=== PATIENT | female | born 1965 | race Two or more races ===

== ENCOUNTER 2019-11-18 10:44 | Emergency (ER) | payer OTHER ==
[~2019-11-18] VITALS: Ht 160 cm; Wt 84.8 kg
[~2019-11-18 10:44] MED LIST: CARAFATE1 GM/10 ML PO; DICY20TA PO; FORTAMET1000 MG PO; IMODIUM A-D2 M2 PO; Intestinex CAP PO; MIRALAX17 GM PO; NEURONTIN300 MG PO; NeuRONTin 400MG CAPS PO; OXYC1TAB9 PO; PEPCID AC20 MG PO; PERCOCET 5-3251 EACH PO; ULTRACET PO
== END 2019-11-18 11:13 | disposition home or self-care (01) ==
LOC: ER 10:44
DX: Z45.2 Encounter for adjustment and management of vascular access device (principal)

== ENCOUNTER 2020-05-03 05:36 | Day surgery (SDC) | payer OTHER ==
[~2020-05-03 05:36] MED LIST changes: +BENADRYL25 MG PO; +GABAPENTIN800 M1 PO
[2020-05-03] MEDS ORDERED: ULTRACET PO (08:21)
== END 2020-05-03 09:40 | disposition home or self-care (01) ==
LOC: CIR.AMB 05:36 → ADM 12:45 → CIR.AMB 12:45
PROVIDERS: ATTEND Surgery
DX: C20 Malignant neoplasm of rectum (principal); Z20.828 Contact with and (suspected) exposure to other viral communicable diseases